=== PATIENT | male | born 1990 | race Caucasian/White ===

== ENCOUNTER 2020-12-24 14:55 | Emergency (ER) | payer OTHER, SELFPAY ==
--- NOTE | 2020-12-24 14:59 | ED.GENADULT ---
HPI - General Adult General Chief complaint: Wound/Laceration Stated complaint: head laceration Time Seen by Provider: 12/24/20 14:59 Source: patient Mode of arrival: ambulatory Limitations: no limitations History of Present Illness HPI narrative: 30-year-old male patient presents to the [facility] with complaints of a head injury that occurred on December 18. Patient states that he hit the back of his head on the closet shelf. Patient states he did lose consciousness at that time. Patient was evaluated at [facility] emergency department on that day and had a negative CT but because he had some dizziness they did diagnose him with a concussion. Patient states they did update his tetanus that day but states they never repaired his laceration to the back of the head. Patient states he has been having some yellow-green discharge coming from the site as well as some tenderness and thinks it could be infected. Denies any fevers, body aches and chills. Patient states he has been cleaning with soap and water as well as hydrogen peroxide. Related Data Allergies Allergy/AdvReac Type Severity Reaction Status Date / Time No Known Allergies Allergy Verified 08/25/19 19:21 Review of Systems Review of Systems: Narrative: CONSTITUTIONAL: Denies fever, chills, or sweats. EYES: Denies visual changes, redness, or discharge. ENT: Denies rhinorrhea, congestion, sore throat, or otalgia. CARDIOVASCULAR: Denies chest pain, palpitations, or edema. RESPIRATORY: Denies cough or dyspnea. GASTROINTESTINAL: Denies abdominal pain, nausea, vomiting, or diarrhea. GENITOURINARY: Denies dysuria or hematuria. SKIN: Denies rash or itching. Positive laceration to back of the head x6 days. MUSCULOSKELETAL: Denies back pain, joint pain, or myalgia. NEUROLOGIC: Denies headache, numbness, or weakness. PSYCHIATRIC: Denies anxiety or depression. PMFSH Social History Social History Smoking status: Never smoker Second hand tobacco smoke exposure: Yes Alcohol intake: never Comments At the time of my signature I agree with nursing past medical history, surgical, social, and family history. There is no relevant family history pertinent to the presenting complaint. Exam Narrative: Exam Narrative: GENERAL: Well-appearing, well-nourished, and in no acute distress. HEAD: Normocephalic, atraumatic. EYES: PERRLA and EOMI. ENT: Nares clear, no rhinorrhea or epistaxis. Mucous membranes moist. NECK: Supple. No lymphadenopathy CHEST: Clear to auscultation. No respiratory distress. HEART: Regular rate and rhythm. No murmur heard. Normal peripheral pulses. ABDOMEN: Soft, nontender, nondistended, normal active bowel sounds. EXTREMITIES: Normal range of motion. No edema. SKIN: Warm, dry, no rash. Patient has approximately 3 cm laceration to the back side of the scalp. It does appear crusty slight erythema. There is some green discharge noted but very minimal. NEURO: Alert and oriented x4, GCS 15. Cranial nerves II through XII grossly intact. No focal neurological deficits. Normal muscle strength and tone. Normal deep tendon reflexes. Negative Babinski, normal finger to nose coordination he had normal heel to martin glide. Speech is clear. Normal gait. Negative Romberg and no pronator drift Course Vital Signs Vital signs: Vital Signs Temperature 36.7 C 12/24/20 15:05 Pulse Rate 104 H 12/24/20 15:05 Respiratory Rate 18 12/24/20 15:05 Blood Pressure 146/76 H 12/24/20 15:05 Pulse Oximetry 100 12/24/20 15:05 Temperature 36.7 C 12/24/20 15:05 Pulse Rate 104 H 12/24/20 15:05 Respiratory Rate 18 12/24/20 15:05 Blood Pressure 146/76 H 12/24/20 15:05 Pulse Oximetry 100 12/24/20 15:05 Vital signs reviewed The patient has been informed that they may have pre-hypertension or Hypertension based on a BP reading in the department. I recommend that the patient call the primary care provider listed on t
[2020-12-24 15:05] VITALS: BP 146/76; PULSE 104; RESP 18; TEMP 36.7; O2SAT 100
== END 2020-12-24 15:42 | disposition home or self-care (01) ==
PROVIDERS: Emergency Provider Nurse Practitioner Family
DX: S01.01XD Laceration without foreign body of scalp, subsequent encounter (principal); W22.09XD Striking against other stationary object, subsequent encounter
CPT/HCPCS: 99213; G0463